=== PATIENT | female | born 1965 | race Caucasian/White ===

== ENCOUNTER → 2019-01-28 | Outpatient (CLI) | payer MEDICAID ==
--- NOTE | 2019-01-28 13:08 | MRI ---
EXAM DESCRIPTION: Cervical Spine: MRI. CLINICAL HISTORY: 53 years Female CERVICAL RADICULOPATHY COMPARISON: Cervical TECHNIQUE: Multiplanar, high-field MRI, multiple sequences, non-contrast Cervical spine. FINDINGS: C3-C4: Tiny posterior midline disc bulge. Left uncinate spur. Minimal narrowing of the left neural foramen. Canal and right neuroforamen are patent. C4-5: Disc desiccation and minimal disc space loss. Posterior broad-based osteophyte-disc bulge abutting the midline cord with AP canal diameter 8 mm. Bilateral uncinate spurs. Facet joints unremarkable. Bilateral borderline neural foraminal stenosis. C5-6: Disc desiccation and moderate disc space loss. 3 mm grade 1 retrolisthesis. Posterior 4 mm disc bulge AP canal diameter 7 mm. Bilateral uncinate spurs. Bilateral borderline neural foraminal stenosis. Facet joints are unremarkable. Normal signal in the remaining discs with no bulging. Disc spaces preserved. Canal and neural foramina are patent. Facet joints are unremarkable. Spinal alignment is unremarkable. No cord compression or cord edema. Atlantoaxial joint minimal periarticular edema. Base of the cerebellar tonsils is at the level of the foramen magnum. Paravertebral soft tissues negative.. Vertebral bodies are not compressed at any level. Normal marrow signal in the remaining vertebral bodies and the posterior elements. IMPRESSION: 1. Posterior broad-based disc osteophyte complex at C4-5 is abutting the midline core with mild central canal stenosis. Bilateral borderline neural foraminal stenosis. Correlate for bilateral C5 radiculopathy. 2. Grade 1 retrolisthesis C5-6, with posterior disc bulge. Mild to moderate canal stenosis and borderline neural foraminal stenosis bilaterally. Correlate for bilateral C6 radiculopathy.. Electronically signed by: Lexa Chand MD 01/28/2019 1:05 PM [facility]
== END ==
LOC: MRI 07:00
PROVIDERS: ATTEND Psychiatry & Neurology Neurology
DX: M50.822 Other cervical disc disorders at C5-C6 level (principal); M25.78 Osteophyte, vertebrae